=== PATIENT | male | born 1965 | race Two or more races ===

== ENCOUNTER 2019-08-07 14:21 | Emergency (ER) | payer OTHER ==
[~2019-08-07] VITALS: Ht 167.6 cm; Wt 92.1 kg
[2019-08-07 14:27] VITALS: BP 120/69
--- NOTE | 2019-08-07 14:30 | NUR ---
CAME IN FOR R EYE PAIN SINCE YESTERDAY, R EYE NOTED W SWELLING AND REDNESS. TO ER BED 10, HOOKED TO MONITOR, CHANGED TO GOWN, PROVIDED W WARM BLANKET, MIKE MOORE AT BEDSIDE
--- NOTE | 2019-08-07 14:50 | NUR ---
Patient discharged to home in stable condition. Written and verbal after care instructions given. Patient verbalizes understanding of instruction.
== END 2019-08-07 14:51 | disposition home or self-care (01) ==
LOC: ER 14:25
DX: H00.011 Hordeolum externum right upper eyelid (principal); E11.9 Type 2 diabetes mellitus without complications; M62.838 Other muscle spasm; F17.210 Nicotine dependence, cigarettes, uncomplicated

== ENCOUNTER 2020-03-16 21:07 | Emergency (ER) | payer OTHER ==
[~2020-03-16] VITALS: Ht 167.6 cm; Wt 86.2 kg
--- NOTE | 2020-03-16 21:45 | NUR ---
BIBS. TO ER BED 4. AAOX4. NOT IN RESP DISTRESS, BREATHING EVEN AND UNLABORED. AMBULATORY. [place] SPEAKING W/ FAMILY ON PHONE. PT IS C/O L CHEST PAIN X 2 HOUR AGO. SENSATION OF PRESSURE. NO SOB. NO NAUSEA/VOMITING. NO DIAPHORESIS. IV LINE OBTAINED, BLOOD DRAWN AND GIVEN TO AUTOMOBILE ASSEMBLER AT BEDSIDE. EKG DONE BY EMT. AWAITING MD FOR EVAL. PLACED ON MONITOR. WILL CONTINUE TO MONITOR.
[2020-03-16 21:46] LABS: BASOPHILS # (AUTO) 0.2 /CMM (0.0-0.2); BASOPHILS % (AUTO) 1.4 % (0.0-2.0); EOSINOPHILS % (AUTO) 1.7 % (0.0-6.0); HEMATOCRIT 47 % (39-51); HEMOGLOBIN 15.8 g/dL (13.5-17.5); LYMPHOCYTES # (AUTO) 3.1 /CMM (0.8-4.8); LYMPHOCYTES % (AUTO) 27.3 % (20.0-44.0); MEAN CORPUSCULAR HGB CONC 34 g/dl (31.0-36.0); MEAN CORPUSCULAR VOLUME 93 fL (80-96); MONOCYTES # (AUTO) 0.8 /CMM (0.1-1.30); MONOCYTES % (AUTO) 6.8 % (2.0-12.0); NEUTROPHILS # (AUTO) 7.2 /CMM (1.8-8.9); NEUTROPHILS % (AUTO) 62.8 % (43.0-81.0); PLATELET COUNT (AUTO) 335 /CMM (150-450); RED BLOOD CELL COUNT(AUTO) 5.03 MIL/uL (4.5-6.0); WHITE BLOOD COUNT (AUTO) 11.4 K/uL (4.3-11.0)
[2020-03-16 21:54] LABS: CALCIUM, SERUM 9.1 mg/dL (8.5-10.1); CARBON DIOXIDE 28 mmol/L (21-32); CHLORIDE 104 mmol/L (98-107); CREATININE 0.8 mg/dL (0.6-1.3); GLUCOSE 93 mg/dL (74-106); POTASSIUM 4.2 mmol/L (3.5-5.1); SODIUM SERUM 140 mmol/L (136-145); UREA NITROGEN, BLOOD 18 mg/dL (7-18)
[2020-03-16 22:06] LABS: ALANINE AMINOTRANSFERASE 39 U/L (12-78); ALBUMIN 3.5 g/dL (3.4-5.0); ALKALINE PHOSPHATASE 72 U/L (46-116); ASPARTATE AMINOTRANSFERASE 18 U/L (15-37); B-TYPE NATRIURETIC PEPTIDE 32 PG/ML (0-125); BILIRUBIN,TOTAL 0.2 mg/dL (0.2-1.0); TOTAL PROTEIN, SERUM 7.1 g/dL (6.4-8.2)
--- NOTE | 2020-03-16 22:30 | NUR ---
WAS AT BEDSIDE W/ ANOTHER RN FOR TRANSLATION. 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 PT WAS TOLD BY SOMEONE THE WHEN THE BACK OF THE HEAD HURTS THAT IT MEANS HIS BP IS UP. BY HAS BEEN STABLE W/ LAST ONE AT 116/71. PT'S CP IS NOT PRESENT UPON ARRIVAL AND REPORTS TAKING IBUPROPHEN CHEMICAL PRODUCTION TECHNICIAN.
--- NOTE | 2020-03-16 22:53 | NUR ---
Krish nayak in [facility] - 03/16/20 at 2254 by SHARI Patient discharged to home in stable condition. Written and verbal after care instructions given. Patient verbalizes understanding of instruction. Pt ambulatory with a steady gait
--- NOTE | 2020-03-16 22:54 | NUR ---
Patient discharged to home in stable condition. Written and verbal after care instructions given. Patient verbalizes understanding of instruction. Pt ambulatory with a steady gait
[2020-03-16 22:55] VITALS: BP 129/68
== END 2020-03-16 22:55 | disposition home or self-care (01) ==
LOC: ER 21:07
DX: R07.89 Other chest pain (principal); I10 Essential (primary) hypertension; E11.9 Type 2 diabetes mellitus without complications; F17.200 Nicotine dependence, unspecified, uncomplicated
CPT/HCPCS: 36415; 71045-TC; 80048-TC; 80076-TC; 83880; 84484-TC; 85025-TC

== ENCOUNTER 2020-03-27 13:29 | Emergency (ER) | payer OTHER ==
[~2020-03-27] VITALS: Ht 170.2 cm; Wt 80.7 kg
[2020-03-27] MEDS ORDERED: ONDANSETRON HCL/PF 4 MG/2 ML VIAL ONE (13:43)
[2020-03-27] MEDS ORDERED: MORPHINE SULFATE INJ 4 MG/ML DISP.SYRIN ONE (13:43)
[2020-03-27 13:54] LABS: BASOPHILS # (AUTO) 0.1 /CMM (0.0-0.2); BASOPHILS % (AUTO) 0.9 % (0.0-2.0); EOSINOPHILS % (AUTO) 1.4 % (0.0-6.0); HEMATOCRIT 47 % (39-51); HEMOGLOBIN 15.8 g/dL (13.5-17.5); LYMPHOCYTES # (AUTO) 1.8 /CMM (0.8-4.8); LYMPHOCYTES % (AUTO) 21.3 % (20.0-44.0); MEAN CORPUSCULAR HGB CONC 34 g/dl (31.0-36.0); MEAN CORPUSCULAR VOLUME 94 fL (80-96); MONOCYTES # (AUTO) 0.5 /CMM (0.1-1.30); MONOCYTES % (AUTO) 5.9 % (2.0-12.0); NEUTROPHILS # (AUTO) 5.9 /CMM (1.8-8.9); NEUTROPHILS % (AUTO) 70.5 % (43.0-81.0); PLATELET COUNT (AUTO) 331 /CMM (150-450); RED BLOOD CELL COUNT(AUTO) 4.99 MIL/uL (4.5-6.0); WHITE BLOOD COUNT (AUTO) 8.4 K/uL (4.3-11.0)
[2020-03-27 13:56] LABS: APPEARANCE,URINE Clear (CLEAR); BILIRUBIN,URINE Negative (NEGATIVE); COLOR,URINE Yellow (YELLOW); KETONES,URINE Negative (NEGATIVE); LEUKOCYTE ESTERASE ,URINE Negative (NEGATIVE); NITRITE, URINE Negative (NEGATIVE); PH,URINE 6.5 (5.0-8.0); PROTEIN,URINE Negative (NEGATIVE); UGLUCOSE Negative (NEGATIVE); UROBILINOGEN,URINE 0.2 EU/dL (0.2)
[2020-03-27 13:58] LABS: BLOOD, URINE NEGATIVE Ery/uL (NEGATIVE)
[2020-03-27] MEDS ORDERED: ONDANSETRON HCL/PF 4 MG/2 ML VIAL IVP ONE (14:00)
[2020-03-27] MEDS ORDERED: MORPHINE SULFATE INJ 2 MG/ML DISP.SYRIN IV ONE (14:00)
[2020-03-27] MEDS ORDERED: IV NS 0.9% 1,000 ML BAG IV ONE (14:00)
[2020-03-27 14:02] LABS: CALCIUM, SERUM 9.1 mg/dL (8.5-10.1); CREATININE 0.9 mg/dL (0.6-1.3); POTASSIUM 4.2 mmol/L (3.5-5.1)
--- NOTE | 2020-03-27 14:04 | NUR ---
Patient came in to the er c/o abd pain and nausea x 1 week. On room air, breathing evenly and unlabored. connected to the monitor and pulse ox. kept comfortable, will continue to monitor accordingly.
[2020-03-27 14:08] LABS: ALBUMIN 3.6 g/dL (3.4-5.0); BILIRUBIN,TOTAL 0.4 mg/dL (0.2-1.0); TOTAL PROTEIN, SERUM 6.9 g/dL (6.4-8.2)
--- NOTE | 2020-03-27 14:08 | NUR ---
patient wheeled to ct
[2020-03-27] MEDS ORDERED: IOHEXOL-300 100 ML VIAL IV ONE (14:14)
[2020-03-27] MEDS ORDERED: IV NS 0.9% 250 ML IV ONE (14:15)
[2020-03-27] MEDS ORDERED: CT SWABBABLE VALVE TRANS SET 1 EA INFUS.SET MC ONE (14:15)
--- NOTE | 2020-03-27 14:33 | NUR ---
patient came back from ct
[2020-03-27 15:12] VITALS: BP 135/81
--- NOTE | 2020-03-27 15:13 | NUR ---
Patient discharged to home in stable condition. Written and verbal after care instructions given. Patient verbalizes understanding of instruction.IV removed. Catheter intact and site benign. Pressure and 4x4 applied to site. No bleeding noted.
== END 2020-03-27 15:13 | disposition home or self-care (01) ==
LOC: ER 13:33
DX: N45.1 Epididymitis (principal); I10 Essential (primary) hypertension; E11.9 Type 2 diabetes mellitus without complications; M62.838 Other muscle spasm
CPT/HCPCS: 36415; 71045; 74177; 76870; 80048; 80076; 81001; 85025; 85730; 87086; 96374; 96375; 99285; J2270; J2405; J7030; J7050; Q9967; 81000-TC

== ENCOUNTER 2020-05-21 11:08 | Emergency (ER) | payer OTHER ==
[~2020-05-21] VITALS: Ht 167.6 cm; Wt 80.3 kg
--- NOTE | 2020-05-21 11:53 | NUR ---
Patient awake alert able to speak full sentences Rosa AguilarWrapper Hands Sprayer @ bedside for Rajinder deng MD @ bedside with order
--- NOTE | 2020-05-21 12:13 | NUR ---
covid swab obtained and send to lab
--- NOTE | 2020-05-21 12:18 | NUR ---
CXR /Radiology @ bedside
--- NOTE | 2020-05-21 12:39 | NUR ---
DC home intruction given agrees to see PMD in 2 days Gladis EMt @ bedside for Citizen [place] speaking interpretation patient ambulatory prescription given
[2020-05-21 12:41] VITALS: BP 134/78
== END 2020-05-21 12:41 | disposition home or self-care (01) ==
LOC: ER 11:14
DX: J40 Bronchitis, not specified as acute or chronic (principal); Z20.828 Contact with and (suspected) exposure to other viral communicable diseases; I10 Essential (primary) hypertension; F17.200 Nicotine dependence, unspecified, uncomplicated; E11.9 Type 2 diabetes mellitus without complications
CPT/HCPCS: 71045; 99284; C9803; U0003

== ENCOUNTER 2021-05-15 16:21 | Emergency (ER) | payer OTHER ==
[~2021-05-15] VITALS: Ht 170.2 cm; Wt 95.3 kg
--- NOTE | 2021-05-15 16:30 | NUR ---
THE PATIENT IS BIBS FOR C/O INTERMITTENT L SIDED CHEST PAIN WITH HEADACHE X 2 DAYS. DENIES SOB. IN ROOM AIR AND RESPIRATION REGULAR AND UNLABORED. ATTACHED TO THE MONITOR. WARM BLANKET PROVIDED FOR COMFORT. WILL CONTINUE TO MONITOR THE PATIENT.
[2021-05-15 16:57] LABS: BASOPHILS # (AUTO) 0.1 /CMM (0.0-0.2); BASOPHILS % (AUTO) 0.7 % (0.0-2.0); EOSINOPHILS % (AUTO) 1.5 % (0.0-6.0); HEMATOCRIT 47 % (39-51); HEMOGLOBIN 15.7 g/dL (13.5-17.5); LYMPHOCYTES # (AUTO) 2.2 /CMM (0.8-4.8); LYMPHOCYTES % (AUTO) 27.4 % (20.0-44.0); MEAN CORPUSCULAR HGB CONC 33 g/dl (31.0-36.0); MEAN CORPUSCULAR VOLUME 95 fL (80-96); MONOCYTES # (AUTO) 0.5 /CMM (0.1-1.30); MONOCYTES % (AUTO) 6.1 % (2.0-12.0); NEUTROPHILS # (AUTO) 5.2 /CMM (1.8-8.9); NEUTROPHILS % (AUTO) 64.3 % (43.0-81.0); PLATELET COUNT (AUTO) 289 /CMM (150-450); RED BLOOD CELL COUNT(AUTO) 4.94 MIL/uL (4.5-6.0)
[2021-05-15] MEDS ORDERED: MELO-105 PO (17:14)
[2021-05-15] MEDS ORDERED: LISI10TA29 PO (17:14)
[2021-05-15] MEDS ORDERED: FLUT1BLS12 INH (17:14)
[2021-05-15] MEDS ORDERED: LORA10TA7 PO (17:14)
[2021-05-15] MEDS ORDERED: MECL-159 PO (17:14)
[2021-05-15] MEDS ORDERED: HYDR30CR99 RC (17:14)
[2021-05-15] MEDS ORDERED: OMEP40CA21 PO (17:14)
[2021-05-15] MEDS ORDERED: CLOT15CR5 TP (17:14)
[2021-05-15] MEDS ORDERED: ASPI-1169 PO (17:14)
[2021-05-15] MEDS ORDERED: GABA-532 PO (17:14)
[2021-05-15] MEDS ORDERED: ATOR40TA PO (17:14)
[2021-05-15] MEDS ORDERED: METF-440 PO (17:14)
[2021-05-15] MEDS ORDERED: IBUP-1957 PO (17:14)
[2021-05-15] MEDS ORDERED: DOCU-141 PO (17:14)
[2021-05-15 17:30] LABS: CALCIUM, SERUM 9.3 mg/dL (8.5-10.1); CARBON DIOXIDE 25 mmol/L (21-32); CHLORIDE 104 mmol/L (98-107); CREATININE 0.7 mg/dL (0.6-1.3); GLUCOSE 115 mg/dL (74-106); POTASSIUM 4.1 mmol/L (3.5-5.1); SODIUM SERUM 141 mmol/L (136-145); UREA NITROGEN, BLOOD 10 mg/dL (7-18)
[2021-05-15] MEDS ORDERED: CT SWABBABLE VALVE TRANS SET 1 EA INFUS.SET MC ONE (17:49)
[2021-05-15] MEDS ORDERED: IOHEXOL-350 100 ML VIAL IV ONE (17:49)
[2021-05-15] MEDS ORDERED: IV NS 0.9% 250 ML IV ONE (17:49)
--- NOTE | 2021-05-15 17:53 | NUR ---
The patient is taken to CTA.
--- NOTE | 2021-05-15 18:07 | NUR ---
THE PATIENT IS BACK FROM [facility] IN STABLE CONDITION.
[2021-05-15 19:05] VITALS: BP 150/76
--- NOTE | 2021-05-15 19:05 | NUR ---
Patient does not wish to proceed with medical care recommended by Dr. Pickens. Patient given information related to possible complications, up to and including , which could occur as a result of leaving the hospital at this time. Patient verbalizes understanding of risks involved due to leaving against medical advice. Patient has signed AMA form.
== END 2021-05-15 19:06 | disposition left against medical advice (07) ==
LOC: ER 16:21
DX: R07.9 Chest pain, unspecified (principal); F17.210 Nicotine dependence, cigarettes, uncomplicated; R94.2 Abnormal results of pulmonary function studies; Z20.822 Contact with and (suspected) exposure to COVID-19; Z83.3 Family history of diabetes mellitus; Z82.49 Family history of ischemic heart disease and other diseases of the circulatory system; I10 Essential (primary) hypertension; Z79.82 Long term (current) use of aspirin; Z79.899 Other long term (current) drug therapy; E11.9 Type 2 diabetes mellitus without complications; Z79.84 Long term (current) use of oral hypoglycemic drugs; K80.20 Calculus of gallbladder without cholecystitis without obstruction
CPT/HCPCS: 36415; 71045; 71275; 80048; 84484; 85025; 87426; 93005 ×2; 99285; C9803; J7050; Q9967

== ENCOUNTER 2021-06-18 21:09 | Emergency (ER) | payer OTHER ==
[~2021-06-18] VITALS: Ht 167.6 cm; Wt 88.5 kg
[~2021-06-18 21:09] MED LIST: ASPI-1169 PO; ATOR40TA PO; CLOT15CR5 TP; DOCU-141 PO; FLUT1BLS12 INH; GABA-532 PO; HYDR30CR99 RC; IBUP-1957 PO; LISI10TA29 PO; LORA10TA7 PO; MECL-159 PO; MELO-105 PO; METF-440 PO; OMEP40CA21 PO
[2021-06-18 21:10] VITALS: BP 132/74
[2021-06-18 22:43] LABS: BASOPHILS % (AUTO) 0.6 % (0.0-2.0); EOSINOPHILS % (AUTO) 1.9 % (0.0-6.0); HEMATOCRIT 45 % (39-51); HEMOGLOBIN 15.1 g/dL (13.5-17.5); LYMPHOCYTES # (AUTO) 2.8 K/uL (0.8-4.8); MEAN CORPUSCULAR HGB CONC 34 g/dl (31.0-36.0); MEAN CORPUSCULAR VOLUME 94 fL (80-96); MONOCYTES # (AUTO) 0.6 K/uL (0.1-1.30); MONOCYTES % (AUTO) 8.3 % (2.0-12.0); NEUTROPHILS # (AUTO) 4.2 K/uL (1.8-8.9); NEUTROPHILS % (AUTO) 53.2 % (43.0-81.0); PLATELET COUNT (AUTO) 305 K/uL (150-450); RED BLOOD CELL COUNT(AUTO) 4.76 MIL/uL (4.5-6.0); WHITE BLOOD COUNT (AUTO) 7.8 K/uL (4.3-11.0)
[2021-06-18 22:50] LABS: CALCIUM, SERUM 8.9 mg/dL (8.5-10.1); CREATININE 0.7 mg/dL (0.6-1.3); POTASSIUM 4.1 mmol/L (3.5-5.1)
--- NOTE | 2021-06-18 23:56 | NUR ---
ER MD AT BEDSIDE TALKING TO PT REGARDING X-RAY AND LAB RESULT. PENDING DISPOSITION.
[2021-06-19] MEDS ORDERED: NAPR-1164 PO (00:05)
[2021-06-19] MEDS ORDERED: TRAM50TA2 PO (00:05)
--- NOTE | 2021-06-19 00:11 | NUR ---
Patient discharged to home in stable condition. Written and verbal after care instructions given. Patient verbalizes understanding of instruction. ambulatory with a steady gait
== END 2021-06-19 00:12 | disposition home or self-care (01) ==
LOC: ER 21:11
DX: M25.562 Pain in left knee (principal); I10 Essential (primary) hypertension; E11.9 Type 2 diabetes mellitus without complications; M62.838 Other muscle spasm; F17.200 Nicotine dependence, unspecified, uncomplicated; Z79.899 Other long term (current) drug therapy; Z79.82 Long term (current) use of aspirin; Z79.84 Long term (current) use of oral hypoglycemic drugs
CPT/HCPCS: 36415; 73560-TC; 80048-TC; 85025-TC

== ENCOUNTER 2021-10-01 21:12 | Emergency (ER) | payer OTHER ==
[~2021-10-01] VITALS: Ht 160 cm; Wt 83.9 kg
[~2021-10-01 21:12] MED LIST changes: +NAPR-1164 PO; +TRAM50TA2 PO
--- NOTE | 2021-10-01 21:43 | NUR ---
PT CAME TO ER BED 6 BIBSON C/O NONRAIDIATING CHEST PAIN FOR PAST 3x DAYS. PATIENT IS AAOX4. BREATHING EVENLY AND UNLABORED ON ROOM AIR AT 99%. CONNECTED TO THE MONITOR.
[2021-10-01 22:25] LABS: BASOPHILS # (AUTO) 0.1 K/uL (0.0-0.2); BASOPHILS % (AUTO) 1.2 % (0.0-2.0); EOSINOPHILS % (AUTO) 2.4 % (0.0-6.0); HEMATOCRIT 41 % (39-51); LYMPHOCYTES # (AUTO) 2.6 K/uL (0.8-4.8); LYMPHOCYTES % (AUTO) 29.8 % (20.0-44.0); MEAN CORPUSCULAR HGB CONC 34 g/dl (31.0-36.0); MEAN CORPUSCULAR VOLUME 94 fL (80-96); MONOCYTES # (AUTO) 0.7 K/uL (0.1-1.30); MONOCYTES % (AUTO) 7.6 % (2.0-12.0); NEUTROPHILS # (AUTO) 5.2 K/uL (1.8-8.9); PLATELET COUNT (AUTO) 305 K/uL (150-450); RED BLOOD CELL COUNT(AUTO) 4.39 MIL/uL (4.5-6.0); WHITE BLOOD COUNT (AUTO) 8.7 K/uL (4.3-11.0)
[2021-10-01 22:34] LABS: CALCIUM, SERUM 8.4 mg/dL (8.5-10.1); CARBON DIOXIDE 27 mmol/L (21-32); CHLORIDE 103 mmol/L (98-107); CREATININE 0.8 mg/dL (0.6-1.3); GLUCOSE 136 mg/dL (74-106); POTASSIUM 3.6 mmol/L (3.5-5.1); SODIUM SERUM 139 mmol/L (136-145); UREA NITROGEN, BLOOD 12 mg/dL (7-18)
--- NOTE | 2021-10-01 22:49 | NUR ---
Patient does not wish to proceed with medical care recommended by Dr. Avina. Patient given information related to possible complications, up to and including , which could occur as a result of leaving the hospital at this time. Patient verbalizes understanding of risks involved due to leaving against medical advice. Patient has signed AMA form.
[2021-10-01 22:55] VITALS: BP 137/76
== END 2021-10-01 22:57 | disposition home or self-care (01) ==
LOC: ER 21:15
DX: R07.89 Other chest pain (principal); I44.7 Left bundle-branch block, unspecified; I10 Essential (primary) hypertension; E11.9 Type 2 diabetes mellitus without complications; F17.200 Nicotine dependence, unspecified, uncomplicated; Z79.899 Other long term (current) drug therapy; Z79.84 Long term (current) use of oral hypoglycemic drugs
CPT/HCPCS: 36415; 71045-TC; 80048-TC; 84484-TC; 85025-TC

== ENCOUNTER 2021-11-17 10:52 | Emergency (ER) | payer OTHER ==
[~2021-11-17] VITALS: Ht 165.1 cm; Wt 83.9 kg
[2021-11-17 11:14] VITALS: BP 121/69
--- NOTE | 2021-11-17 11:35 | NUR ---
CHUCK SPLITTER AT BEDSIDE
[2021-11-17] MEDS ORDERED: IBUP-1957 PO (12:28)
--- NOTE | 2021-11-17 12:30 | NUR ---
VELCRO SPLINT APPLIED BY DEVELOPER PROGRAMMER ANALYST.
--- NOTE | 2021-11-17 12:39 | NUR ---
Patient discharged to home in stable condition. Written and verbal after care instructions given. Patient verbalizes understanding of instruction.
== END 2021-11-17 12:40 | disposition home or self-care (01) ==
LOC: ER 11:14
DX: S60.221A Contusion of right hand, initial encounter (principal); W01.0XXA Fall on same level from slipping, tripping and stumbling without subsequent striking against object, initial encounter; Y93.89 Activity, other specified; Y92.89 Other specified places as the place of occurrence of the external cause; Y99.8 Other external cause status; Z79.899 Other long term (current) drug therapy
CPT/HCPCS: 73130-TC

== ENCOUNTER 2022-08-04 15:44 | Emergency (ER) | payer OTHER ==
[~2022-08-04] VITALS: Ht 165.1 cm; Wt 90.7 kg
--- NOTE | 2022-08-04 15:51 | NUR ---
BACK PAIN X 1 WEEK,WANTS IMAGING AND LABS DONE. PAIN IS 9/10 ON PAIN SCALE. VITALS ARE WITHIN NORMAL LIMITS. AWAITING MD ORDERS.
[2022-08-04] MEDS ORDERED: METHOCARBAMOL (750MG) 750 MG TABLET PO SCH (18:00)
[2022-08-04] MEDS ORDERED: IBUPROFEN 600 MG TABLET PO ONE (18:00)
[2022-08-04] MEDS ORDERED: IBUPROFEN 600 MG TABLET ONE (18:10)
[2022-08-04] MEDS ORDERED: METHOCARBAMOL (500MG) 500 MG TABLET ONE (18:11)
[2022-08-04] MEDS ORDERED: METH750T3 PO (19:41)
--- NOTE | 2022-08-04 19:58 | NUR ---
Patient discharged to home in stable condition. Written and verbal after care instructions given. Patient verbalizes understanding of instruction.
[2022-08-04 20:00] VITALS: BP 135/76
[2022-08-04] MEDS ORDERED: TROL35.4 TP (20:01)
== END 2022-08-04 20:15 | disposition home or self-care (01) ==
LOC: ER 15:49
DX: M54.50 Low back pain, unspecified (principal); Q76.49 Other congenital malformations of spine, not associated with scoliosis; I10 Essential (primary) hypertension; E11.9 Type 2 diabetes mellitus without complications; F17.200 Nicotine dependence, unspecified, uncomplicated; Z79.899 Other long term (current) drug therapy; Z79.84 Long term (current) use of oral hypoglycemic drugs
CPT/HCPCS: 72131-TC

== ENCOUNTER 2022-09-22 14:15 | Emergency (ER) | payer OTHER ==
[~2022-09-22] VITALS: Ht 165.1 cm; Wt 90.7 kg
[~2022-09-22 14:15] MED LIST changes: +METH750T3 PO; +TROL35.4 TP
--- NOTE | 2022-09-22 14:35 | NUR ---
REceived pt 56 yrs male came from home c/o abdominal pain c/o abdominal pain for one week Abdomin soft none tender to touch
[2022-09-22] MEDS ORDERED: ONDANSETRON 4 MG TAB.RAPDIS ONE (15:19)
[2022-09-22] MEDS: ONDANSETRON 4 MG TAB.RAPDIS PO ONE ×2 (15:19→15:23)
--- NOTE | 2022-09-22 15:22 | NUR ---
pt refused ZOFRAN AT HIS TIME PROVIDER NOTEFED
--- NOTE | 2022-09-22 16:00 | NUR ---
Blood drow by lab tach
[2022-09-22 16:10] LABS: BILIRUBIN,URINE NEGATIVE (NEGATIVE); COLOR,URINE YELLOW (YELLOW); LEUKOCYTE ESTERASE ,URINE NEGATIVE (NEGATIVE); NITRITE, URINE NEGATIVE (NEGATIVE); PH,URINE 5.5 (5.0-8.0); PROTEIN,URINE NEGATIVE (NEGATIVE); UGLUCOSE NEGATIVE (NEGATIVE); UROBILINOGEN,URINE 0.2 EU/dL (0.2)
[2022-09-22 16:19] LABS: BACTERIA,URINE None seen /HPF (None Seen); MUCUS,URINE Few /LPF (None Seen); SQUAMOUS EPITHELIAL CELL,UR 0-2 /HPF (None Seen); WBC,URINE 0-2 /HPF (0-3)
--- NOTE | 2022-09-22 16:30 | NUR ---
ABDOMINAL US DONE at bed side
[2022-09-22 16:34] LABS: BASOPHILS % (AUTO) 0.5 % (0.0-2.0); EOSINOPHILS % (AUTO) 1.2 % (0.0-6.0); HEMATOCRIT 47 % (39-51); HEMOGLOBIN 15.8 g/dL (13.5-17.5); LYMPHOCYTES # (AUTO) 2.3 K/uL (0.8-4.8); LYMPHOCYTES % (AUTO) 26.6 % (20.0-44.0); MEAN CORPUSCULAR HGB CONC 34 g/dl (31.0-36.0); MEAN CORPUSCULAR VOLUME 93 fL (80-96); MONOCYTES # (AUTO) 0.5 K/uL (0.1-1.30); MONOCYTES % (AUTO) 5.7 % (2.0-12.0); NEUTROPHILS # (AUTO) 5.7 K/uL (1.8-8.9); RED BLOOD CELL COUNT(AUTO) 5.04 MIL/uL (4.5-6.0); WHITE BLOOD COUNT (AUTO) 8.6 K/uL (4.3-11.0)
[2022-09-22 16:40] LABS: ALBUMIN 3.4 g/dL (3.4-5.0); BILIRUBIN,DIRECT 0.1 mg/dL (0.0-0.2); BILIRUBIN,TOTAL 0.2 mg/dL (0.2-1.0); CALCIUM, SERUM 9.1 mg/dL (8.5-10.1); CREATININE 0.6 mg/dL (0.6-1.3); POTASSIUM 4.1 mmol/L (3.5-5.1); TOTAL PROTEIN, SERUM 7.3 g/dL (6.4-8.2)
[2022-09-22 16:59] LABS: PLATELET COUNT (AUTO) 282 K/uL (150-450)
[2022-09-22] MEDS ORDERED: IBUP100O PO (17:23)
--- NOTE | 2022-09-22 17:25 | NUR ---
PROVIDER at bed side spooking with pt about plan of care
[2022-09-22] MEDS ORDERED: KETO10TA2 PO (17:38)
--- NOTE | 2022-09-22 17:45 | NUR ---
Patient discharged to home in stable condition. Written and verbal after care instructions given. Patient verbalizes understanding of instruction.
[2022-09-22 18:08] VITALS: BP 139/78
== END 2022-09-22 18:09 | disposition home or self-care (01) ==
LOC: ER 14:15
DX: K80.20 Calculus of gallbladder without cholecystitis without obstruction (principal); R10.11 Right upper quadrant pain; I10 Essential (primary) hypertension; E11.9 Type 2 diabetes mellitus without complications; F17.200 Nicotine dependence, unspecified, uncomplicated; Z79.899 Other long term (current) drug therapy
CPT/HCPCS: 99285; 76705; 71045; 93005; 85025; 80048; 83690; 80076; 81001; 36415; Q0162; J2405